=== PATIENT | male | born 1985 | race Caucasian/White ===

== ENCOUNTER 2017-02-16 15:30 | Emergency (ER) | payer MEDICAID ==
--- NOTE | 2017-02-22 16:08 | ER ---
ADMIT: 02/16/2017 RM/LOC: ER [facility] MR#: [id number] [address] [id number] DANIELLACAIN DARNELL [address] [place] [id number] Emergency Room Report SEX: M AGE: 31 : 1985 DATE: 02/16/2017 CHIEF COMPLAINT: Injury to right shoulder. HISTORY OF PRESENT ILLNESS: Pleasant 31-year-old white male, who presents to the ER after sustaining an injury to his right shoulder at home. The patient states just prior to arrival, he was playing with his kids when he was jumping over the garden area, tripped and landed on an outstretched right hand. The patient states he felt a pop and had immediate pain in the right shoulder. Denies any tingling or numbness distally into the right arm. Does have some pain with movement of the right upper extremity. Otherwise, was well prior to the event today. Currently, patient states he is in minimal pain at rest. Does have significant pain with motion. COURSE IN THE EMERGENCY ROOM: Patient was seen and examined, significant for obvious deformity over the right clavicle. Neurovascularly; patient is intact, strong radial pulse compared bilaterally. Cap refill is less than 2 seconds. No numbness or tingling into the distal extremity. No evidence of an open fracture. Did get an x-ray of the right shoulder, significant for a right clavicle fracture. The patient refused hematoma block, states his pain was manageable at this time. He was placed in a sling in the right arm. Follow up Orthopedic Surgery next week. IMPRESSION: Closed right clavicle fracture. DISPOSITION: The patient was given follow up with Dr. Camejo next week, Orthopedic Surgery. He is to remain in his sling until this followup. He can take this off to shower. Continue to use Tylenol or ibuprofen as needed for pain. He was provided with a script for [place] 5/325 one to two tabs every 4-6 hours as needed for pain #20. He is to apply ice as needed to that area for pain. Certainly return with any worsening signs or symptoms including numbness, tingling or loss of vascular flow to the distal extremity. Questions were sought and answered to the best of my ability and to the patient's satisfaction. He is discharged in stable condition. KELLY Law / Dirk Fernández MD / ernie JOB #: [id number] CC: Dirk Fernández MD, Attending Physician Sesar Camejo MD, Family Physician
== END 2017-02-16 17:00 | disposition home or self-care (01) ==
LOC: ER 15:30
DX: S42.021A Displaced fracture of shaft of right clavicle, initial encounter for closed fracture (principal); Z98.890 Other specified postprocedural states; W01.0XXA Fall on same level from slipping, tripping and stumbling without subsequent striking against object, initial encounter; Y93.39 Activity, other involving climbing, rappelling and jumping off